=== PATIENT | male | born 1950 | race Caucasian/White ===

== ENCOUNTER → 2023-06-18 14:36 | Outpatient (REF) | payer SELFPAY | LOC: HWRAD 14:36 | PROVIDERS: ATTENDING PHYSICIAN Student in an Organized Health Care Education/Training Program | DX: E78.00 Pure hypercholesterolemia, unspecified (principal) | CPT/HCPCS: 75571 ==

== ENCOUNTER 2024-09-20 17:49 | Emergency (ER) | payer SELFPAY ==
[2024-09-20 17:58] VITALS: BP 152/90; BP 153/90
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
== END 2024-09-20 20:58 | disposition home or self-care (01) ==
LOC: EMR 17:49
PROVIDERS: EMERGENCY PHYSICIAN Student in an Organized Health Care Education/Training Program; FAMILY PHYSICIAN Student in an Organized Health Care Education/Training Program
DX: M54.9 Dorsalgia, unspecified (principal); M79.18 Myalgia, other site; M54.2 Cervicalgia; R26.2 Difficulty in walking, not elsewhere classified; V49.40XA Driver injured in collision with unspecified motor vehicles in traffic accident, initial encounter; W22.11XA Striking against or struck by driver side automobile airbag, initial encounter; Y92.410 Unspecified street and highway as the place of occurrence of the external cause; F32.A Depression, unspecified; Z87.442 Personal history of urinary calculi
CPT/HCPCS: 99284; 70450; 72125

== ENCOUNTER → 2025-02-07 14:50 | Outpatient (REF) | payer OTHER, SELFPAY | LOC: MRI 3T 14:50 | PROVIDERS: ATTENDING PHYSICIAN Student in an Organized Health Care Education/Training Program; FAMILY PHYSICIAN Internal Medicine; REFERRING PHYSICIAN Chiropractor | DX: M25.561 Pain in right knee (principal) | CPT/HCPCS: 73721 ==